=== PATIENT | female | born 1985 | race Caucasian/White ===

== ENCOUNTER 2017-03-12 15:50 | Emergency (ER) | payer BC, OTHER ==
[~2017-03-12] VITALS: Ht 160 cm; Wt 79.5 kg
[2017-03-12 16:01] VITALS: Ht 160 cm; Wt 79.5 kg
[2017-03-12] MEDS ORDERED: KETOROLAC 30 MG INJ IM STA (17:34)
--- NOTE | 2017-03-12 18:33 | ERD ---
ER Documentation Chief Complaint Date/Time DATE: 03/12/17 TIME: 18:31 Chief Complaint LEFT ARM BELOW ELBOW PAIN AFTER A [facility] FALL HPI Patient is a 31-year-old female with no past medical history who presents to the ED with left elbow and arm pain after sustaining a fall yesterday. She states that she was roller skating and fell backwards on her arm. She denies hitting her head, passing out or losing consciousness. Denies neck pain or neck stiffness. She states that she is able to move her arm but with a lot of pain. States that the pain is an 8 out of 10 has not taken any medication for her symptoms besides IcyHot. Denies pain in her wrist or fingers. Denies numbness or tingling. Denies loss of sensation. No other complaints. ROS All systems reviewed and are negative except as per history of present illness. Medications Home Meds Active Scripts Naproxen* (Naprosyn*) 500 Mg Tablet, 500 MG PO BID Y for PAIN AND/OR INFLAMMATION, #30 TAB Prov:JOHN ELLISON PA-C 03/12/17 Allergies Allergies: Coded Allergies: No Known Allergy (Unverified , 03/12/17) PMhx/Soc Medical and Surgical Hx: pt denies Medical Hx, pt denies Surgical Hx History of Surgery: No Anesthesia Reaction: No Hx Neurological Disorder: No Hx Respiratory Disorders: No Hx Cardiac Disorders: No Hx Psychiatric Problems: No Hx Miscellaneous Medical Probl: No Hx Alcohol Use: No Hx Substance Use: No Hx Tobacco Use: No Smoking Status: Never smoker Physical Exam Vitals Vital Signs Date Time Temp Pulse Resp B/P Pulse Ox O2 Delivery O2 Flow Rate FiO2 03/12/17 16:01 98.7 81 18 130/71 99 Physical Exam GENERAL: Well-developed, well-nourished femalefemale. Appears in no acute distress. HEAD: Normocephalic, atraumatic. EYES: Pupils are equally reactive bilaterally. EOMs grossly intact. No conjunctival erythema. ENT: Moist mucous membranes. No uvula deviation. No kissing tonsils. No exudates. NECK: Supple. No lymphadenopathy or thyromegaly. No meningismus. negative kernig. negative brudinski. LUNG: Clear to auscultation bilaterally. No rhonchi, wheezing, rales or coarse breath sounds. HEART: Regular rate and rhythm. No murmurs, rubs or gallops. Extremities: Equal pulses bilaterally. No peripheral clubbing, cyanosis or edema. No unilateral leg swelling. Tenderness to the left elbow and radius and ulna. No snuffbox tenderness. Radius, ulnar and median nerve intact. No step- offs or deformities. Sensation intact. NEUROLOGIC: Alert and oriented. Moving all four extremities. 5/5 strength in all extremities. Normal speech. Steady gait. SKIN: Normal color. Warm and dry. No rashes or lesions. Capillary refill < 2 seconds Results 24 hrs Current Medications Medications (Trade) Dose Ordered Sig/Sarah Route PRN Reason Start Time Stop Time Status Last Admin Dose Admin Ketorolac Tromethamine (Toradol) 30 mg ONCE STAT IM 03/12/17 17:34 03/12/17 17:35 DC 03/12/17 17:54 Procedures/MDM ER COURSE: I kept the patient and/or family informed of laboratory and diagnostic imaging results throughout the emergency room course. MEDICATIONS Negative test. Toradol 30 mg IM. Tolerated well with no adverse reaction. IMAGING STUDIES [place] [id number] Radiology Main Line: [phone] DIAGNOSTIC IMAGING REPORT Patient: RAMANA VIERA : 1985 Age: 31 Sex: F MR #: [id number] DOS: 03/12/17 1734 Ordering MD: JOHN ELLISON PA-C Location: [facility] Room/Bed: PROCEDURE: XR Elbow. CLINICAL INDICATION: Injury TECHNIQUE: Three views of the left elbow are available for review COMPARISON: None available FINDINGS: There is a minimally displaced and impacted fracture of the radial head with intra-articular involvement. The ulnohumeral articulation is otherwise maintained. An elbow joint effusion is present IMPRESSION: 1. Minimally impacted radial head fracture. 2. Elbow joint effusion. RPTAT: EE .Jr Rice MD, Date Time Electronically viewed and signed by .Jr Rice MD, on 03/12/2017 18:33 .d/ CC: JOHN ELLISON PA-C MEDICAL DECISION MAKING: This is a 31-year-old female who presents with left elbow and arm pain after sustaining a fall yesterday. Vital signs were reviewed. Patient is afebrile. Patient is not hypoxic. Patient is not toxic or ill-appearing. X-rays read by radiologist shows a minimally to the radial head fracture with elbow joint effusion. Low suspicion for dislocation, septic joint, compartment syndrome, osteomyelitis, cellulitis, avascular necrosis, neurological injury, vascular injury, tendon laceration. Patient was given a splint and a sling in the ED. Neurovascularly intact post placement. DISCHARGE: At this time, patient is stable for discharge and outpatient management with no new complaints during the ER course. Patient was sent home with copy of imaging report, names of orthopedics to follow-up with and Arnie. Patient will be discharged home with instructions to recheck for new or worsening symptoms such as fever, nausea, weakness, LOC and to follow up with primary care in the next 1 -2 days. Patient was advised to return to the ER for any new or worsening symptoms. Plan was discussed and patient and/or family understands and agrees. Home instructions were given. Departure Diagnosis: Primary Impression: Radial head fracture, closed Encounter type: initial encounter Fracture alignment: nondisplaced Laterality: left Qualified Code: S52.125A - Closed nondisplaced fracture of head of left radius, initial encounter Condition: Stable JOHN ELLISON PA-C March 12, 2017 18:33
--- NOTE | 2017-03-12 18:34 | RADRPT ---
PROCEDURE: XR Elbow. CLINICAL INDICATION: Injury TECHNIQUE: Three views of the left elbow are available for review COMPARISON: None available FINDINGS: There is a minimally displaced and impacted fracture of the radial head with intra-articular involve ment. The ulnohumeral articulation is otherwise maintained. An elbow joint effusion is present IMPRESSION: 1. Minimally impacted radial head fracture. 2. Elbow joint effusion. RPTAT: EE .Jr Rice MD, MD Date Time Electronically viewed and signed by .Jr Rice MD, on 03/12/2017 18:33 .d/
--- NOTE | 2017-03-12 18:34 | RADRPT ---
PROCEDURE: XR Forearm Left CLINICAL INDICATION: Injury TECHNIQUE: Two views of the forearm. COMPARISON: None. FINDINGS: There is a minimally displaced and impacted fracture of the radial head with intra-articular involve ment. The ulnohumeral articulation is otherwise maintained. The distal radius and ulna are intact. An elbow joint effusion is present IMPRESSION: 1. Minimally impacted radial head fracture. 2. Elbow joint effusion. RPTAT: EE .Jr Rice MD, Date Time Electronically viewed and signed by .Jr Rice MD, MD on 03/12/2017 18:34 .d/
[2017-03-12] MEDS ORDERED: NAPR-260 PO (18:39)
== END 2017-03-12 19:22 | disposition home or self-care (01) ==
LOC: FTE 15:50
DX: S52.125A Nondisplaced fracture of head of left radius, initial encounter for closed fracture (principal); V00.121A Fall from non-in-line roller-skates, initial encounter; Y92.9 Unspecified place or not applicable
CPT/HCPCS: 29105; 73080; 73090; 96372; 99284; J1885